=== PATIENT | male | born 1985 | race Caucasian/White ===

== ENCOUNTER 2017-03-09 01:00 | Emergency (ER) | payer OTHER ==
[~2017-03-09] VITALS: Ht 175.3 cm; Wt 72.6 kg
[2017-03-09 01:05] VITALS: BP 143/92
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
[2017-03-09] MEDS ORDERED: NACL 0.9% 1,000 ML IV ONE (02:55)
--- NOTE | 2017-03-09 03:00 | NUR ---
Patient appears to be resting comfortably in bed. Vital Signs within normal limits. Respirations even and unlabored.
[2017-03-09 05:10] VITALS: BP 148/72
--- NOTE | 2017-03-09 05:10 | NUR ---
PATIENT BIB [facility]. PATIENT EXAMINED BY . PATIENT MEDICALLY CLEARED AND RELEASED IN CUSTODY IN STABLE CONDITION. ORIGINAL PRE-BOOK FORM GIVEN TO OFFICER ALLYSON.IV removed, catheter intact and site benign. Applied folded 4x4 gauze and tape to stop bleeding.
== END 2017-03-09 05:10 ==
LOC: MED 01:00
DX: Z02.89 Encounter for other administrative examinations (principal); S09.90XA Unspecified injury of head, initial encounter; V43.92XA Unspecified car occupant injured in collision with other type car in traffic accident, initial encounter; Y93.19 Activity, other involving water and watercraft; Y92.488 Other paved roadways as the place of occurrence of the external cause; Y99.8 Other external cause status
CPT/HCPCS: 70450; 71045; 72125; 93005; 96360; 99284; J7030; Q0092